=== PATIENT | male | born 1965 | race American Indian/Alaskan Native ===

== ENCOUNTER 2021-05-19 21:30 | Emergency (ER) | payer SELFPAY ==
[2021-05-19] MEDS ORDERED: LIDOCAINE (1%) 10 MG/1 ML VIAL 20 ML MDV INFILTRATI ONE (22:19)
[2021-05-19] MEDS ORDERED: ACETAMINOPHEN 500 MG TAB PO ONE (22:19)
[2021-05-19] MEDS ORDERED: TETANUS,DIPH,PERTUSS(ACELL) VACCINE 0.5 ML SYRINGE IM ONE (22:19)
--- NOTE | 2021-05-19 23:35 | Cat Scan Report ---
CT head/brain wo con, CT facial bones wo con, CT cervical spine wo con INDICATION / CLINICAL INFORMATION: fall laceration. TECHNIQUE: Axial coronal and sagittal images All CT scans at this location are performed using CT dose reduction for ALARA by means of automated exposure control. COMPARISON: None available. FINDINGS: CT head: No acute intracranial hemorrhage. Ventricles are normal in size without midline shift or mass effect. No extra-axial fluid collection is seen. There is some subtle area of low attenuation within the rig ht frontal white matter and waller-white matter junction, nonspecific and may be chronic. Sinuses are c lear CT maxillofacial: A soft tissue swelling surrounding the left orbit. Small areas of density adjacent to the lateral asp ect of the orbit are seen in soft tissues, nonspecific. Sinuses are clear. Orbital page are intact. Mild right maxillary sinus disease nasal bone is intact. Small area of calcification density overlyin g the nasal bone on lateral view is well. Mandible is intact. CT cervical spine: Cervical spine alignment appears normal. Anterior posterior disc osteophytes at several levels. Facet degenerative changes seen throughout. No prevertebral soft tissue swelling is seen. Odontoid appears normal. No subluxation is seen. No soft tissue abnormality. IMPRESSION: 1. No acute cervical spine findings. 2. No acute intracranial hemorrhage. Subtle area of low attenuation within the right posterior fronta l white matter is nonspecific and may be chronic. 3. Mild soft tissue swelling overlying the left orbit on the lateral aspect. Few tiny calcifications/ densities in the soft tissues. Clinical correlation with examination. Patient with history of lacerat ion however exact location of laceration was not given. Correlation with area of laceration. Signer Name: Florencio Mancini MD Signed: 05/19/2021 11:31 PM Workstation Name: [id number]
--- NOTE | 2021-05-19 23:40 | Emergency Department Report ---
ED General Adult HPI - General Chief complaint: Fall Stated complaint: NOSE INJURY DUE TO FALL Time Seen by Provider: 05/19/21 22:16 Source: patient Mode of arrival: Ambulatory Limitations: No Limitations - History of Present Illness Initial comments: Patient 55-year-old male who presents with family member status post ground- level fall today. States he slipped and fell striking the bridge of his nose the edge of a couch causing small laceration to bridge of nose. There was no LOC patient was immediately amatory after incident recalls entire incident. Bleeding was controlled by self applied direct pressure, there is no bleeding at this time. Patient complains of mild headache and sinus pressure. There is no obvious deformity there is no gross ecchymosis no no bleeding . Patient is amatory with steady gait at this time. Severity scale (0 -10): 8 - Related Data Previous Rx's Medication Instructions Recorded Last Taken Type Acetaminophen [Non-Aspirin Pain 1,000 mg PO Q6H PRN #30 tablet 05/19/21 Unknown Rx Relief] Allergies Allergy/AdvReac Type Severity Reaction Status Date / Time No Known Allergies Allergy Unverified 05/19/21 22:18 ED Review of Systems ROS: Stated complaint: NOSE INJURY DUE TO FALL Other details as noted in HPI Constitutional: denies: chills, fever Eyes: denies: eye pain, eye discharge, vision change ENT: denies: ear pain, throat pain, epistaxis Respiratory: denies: cough, shortness of breath, wheezing Cardiovascular: denies: chest pain, palpitations Endocrine: no symptoms reported Gastrointestinal: denies: abdominal pain, nausea, vomiting, diarrhea Genitourinary: denies: urgency, dysuria Musculoskeletal: other (neck pain) Skin: denies: rash, lesions Neurological: headache. denies: weakness, numbness, paresthesias, confusion, vertigo Psychiatric: denies: anxiety, depression Hematological/Lymphatic: denies: easy bleeding, easy bruising ED Past Medical Hx - Past Medical History Previous Medical History?: No - Surgical History Past Surgical History?: No - Medications Home Medications: Home Medications Medication Instructions Recorded Confirmed Last Taken Type Acetaminophen [Non-Aspirin Pain 1,000 mg PO Q6H PRN #30 tablet 05/19/21 Unknown Rx Relief] ED Physical Exam - General Limitations: No Limitations General appearance: alert, in no apparent distress - Head Head exam: Present: normocephalic - Expanded Head Exam Expanded Head exam: Present: laceration (bridge of nose 1 cm ). Absent: abrasion, contusion, hematoma, racoon eyes, sandoval's sign, general tenderness - Eye Eye exam: Present: normal appearance, PERRL, EOMI. Absent: conjunctival injection, nystagmus Pupils: Present: normal accommodation - ENT ENT exam: Present: normal orophraynx, mucous membranes moist - Neck Neck exam: Present: normal inspection, full ROM. Absent: tenderness, lymphadenopathy - Expanded Neck Exam Expanded Neck exam: Present: other (No posterior vertebral point tenderness range of motion is intact and unrestricted to all quadrants). Absent: midline deformity, anterior neck swelling, thyroid mass, carotid bruit, tracheal deviation - Respiratory Respiratory exam: Present: normal lung sounds bilaterally. Absent: respiratory distress, wheezes, rhonchi, stridor, chest wall tenderness - Cardiovascular Cardiovascular Exam: Present: regular rate, normal rhythm, normal heart sounds. Absent: systolic murmur, diastolic murmur, rubs, gallop - GI/Abdominal GI/Abdominal exam: Present: soft, normal bowel sounds. Absent: distended, tenderness, guarding, rebound, rigid, bruit, hernia - Rectal Rectal exam: Present: deferred - Extremities Exam Extremities exam: Present: normal inspection, full ROM, normal capillary refill - Back Exam Back exam: Present: full ROM. Absent: CVA tenderness (R), CVA tenderness (L), muscle spasm, paraspinal tenderness, vertebral tenderness - Neurological Exam Neurological exam: Present: alert, oriented X3, CN II-XII intact, normal gait, reflexes normal. Absent: motor sensory deficit - Expanded Neurological Exam Expanded Patient oriented to: Present: person, place, time Speech: Present: fluid speech Cranial nerves: EOM's Intact: Normal, Gag Reflex: Normal, Tongue Deviation: Normal, Nystagmus: Normal, Facial Sensation: Normal Cerebellar function: Finger to Nose: Normal Motor strength exam: RUE: 5, LUE: 5, RLE: 5, LLE: 5 Best Eye Response ([place]): (4) open spontaneously Best Motor Response ([place]): (6) obeys commands Best Verbal Response ([place]): (5) oriented [place] Total: 15 - Psychiatric Psychiatric exam: Present: normal affect, normal mood - Skin Skin exam: Present: warm, dry, normal color ED Course Vital Signs 05/19/21 22:01 Temperature 97.8 F Pulse Rate 76 Respiratory 16 Rate Blood Pressure 118/80 O2 Sat by Pulse 95 Oximetry - Laceration /Wound Repair Face Wound Location: face (2 cm laceration bridge of nose.) Wound Length (cm): 2 Wound's Depth, Shape: irregular Wound Explored: clean Irrigated w/ Saline (ccs): 20 Anesthesia: 1% Lidocaine Volume Anesthetic (ccs): 1 Wound Debrided: minimal Wound Repaired With: sutures Suture Size/Type: 4:0, proline (vycril) Number of Sutures: 1 Sterile Dressing Applied?: Yes Progress: 2 cm laceration bridge of nose, site cleaned with Betadine solution, anesthesia 1% lidocaine x1 cc, wound closed with four-point 0 Vicryl times 1 suture. Edges well approximated all bleeding is controlled. There is no crepitus no step-off no obvious deformity. Nares are patent there is no epistaxis. Patient given wound care instructions. Verbalized agreement and understanding with same. Patient tolerated procedure with minimal distress ED Medical Decision Making - Radiology Data Radiology results: report reviewed, image reviewed CT head/brain wo con, CT facial bones wo con, CT cervical spine wo con INDICATION / CLINICAL INFORMATION: fall laceration. TECHNIQUE: Axial coronal and sagittal images All CT scans at this location are performed using CT dose reduction for ALARA by means of automated exposure control. COMPARISON: None available. FINDINGS: CT head: No acute intracranial hemorrhage. Ventricles are normal in size without midline shift or mass effect. No extra-axial fluid collection is seen. There is some subtle area of low attenuation within the right frontal white matter and waller-white matter junction, nonspecific and may be chronic. Sinuses are clear CT maxillofacial: A soft tissue swelling surrounding the left orbit. Small areas of density adjacent to the lateral aspect of the orbit are seen in soft tissues, nonspecific. Sinuses are clear. Orbital page are intact. Mild right maxillary sinus disease nasal bone is intact. Small area of calcification density overlying the nasal bone on lateral view is well. Mandible is intact. CT cervical spine: Cervical spine alignment appears normal. Anterior posterior disc osteophytes at several levels. Facet degenerative changes seen throughout. No prevertebral soft tissue swelling is seen. Odontoid appears normal. No subluxation is seen. No soft tissue abnormality. IMPRESSION: 1. No acute cervical spine findings. 2. No acute intracranial hemorrhage. Subtle area of low attenuation within the right posterior frontal white matter is nonspecific and may be chronic. 3. Mild soft tissue swelling overlying the left orbit on the lateral aspect. Few tiny calcifications/densities in the soft tissues. Clinical correlation with examination. Patient with history of laceration however exact location of laceration was not given. Correlation with area of laceration. Signer Name: Florencio Mancini MD Signed: 05/19/2021 11:31 PM Workstation Name: [id number] - Medical Decision Making Fall, nasal laceration the nose. See procedure note for wound closure, patient given wound care instructions follow-up primary care doctor in 2 days for wound check. Will return to emergency department if symptom worsens., Neuro exam is normal patient is alert oriented x3 amatory with steady gait, there is no posterior vertebral point tenderness to cervical spine or ecchymosis crepitus or step-off patient denies other injuries, airway is patent patient tolerating p.o. intake without symptoms. Patient DC'd home in stable condition with family member. Patient given minor head injury precautions. Critical care attestation.: If time is entered above; I have spent that time in minutes in the direct care of this critically ill patient, excluding procedure time. ED Disposition Clinical Impression: Laceration of nose Qualifiers: Encounter type: initial encounter Qualified Code(s): S01.21XA - Laceration without foreign body of nose, initial encounter Fall Qualifiers: Encounter type: initial encounter Qualified Code(s): W19.XXXA - Unspecified fall, initial encounter Minor head injury Qualifiers: Encounter type: initial encounter Qualified Code(s): S09.90XA - Unspecified injury of head, initial encounter Disposition: HOME / SELF CARE / HOMELESS Is pt being admited?: No Does the pt Need Aspirin: No Condition: Stable Instructions: Laceration Care, Adult, [id number], Facial Laceration, [id number], Head Injury, Adult, [id number] Additional Instructions: Take medications as prescribed, follow-up with your doctor in 2 days for wound check. Turn to ER if symptoms worsen. Prescriptions: Acetaminophen [Non-Aspirin Pain Relief] 1,000 mg PO Q6H PRN #30 tablet PRN Reason: pain Referrals: YADI MASSEY MD [Staff Physician] - 3-5 Days Forms: Work/School Release Form(ED) Time of Disposition: 23:53
[2021-05-20 05:31] VITALS: BP 120/77
== END 2021-05-20 01:00 | disposition home or self-care (01) ==
LOC: ED 21:30
DX: S01.21XA Laceration without foreign body of nose, initial encounter (principal); S09.90XA Unspecified injury of head, initial encounter; W18.30XA Fall on same level, unspecified, initial encounter; Y93.89 Activity, other specified; Y92.89 Other specified places as the place of occurrence of the external cause; Y99.8 Other external cause status
CPT/HCPCS: 70450; 70486; 72125; 90471; 90715; 99283